=== PATIENT | male | born 1935 | race Caucasian/White ===

== ENCOUNTER 2024-09-06 15:30 | Emergency (ER) | payer MEDICARE, SELFPAY ==
[2024-09-06] VITALS (7 sets, daily range): BP systolic 100–164; BP diastolic 62–100; PULSE 71–89; RESP 18–22; TEMP 36.6; O2SAT 96–100
--- NOTE | ~2024-09-06 | XR_ITS ---
EXAM: XR wrist RT min 3V DATE: 09/06/2024 15:55 HISTORY: fall . COMPARISON: None available. FINDINGS: Decreased mineralization. No fracture. Scapholunate widening. No lytic or blastic lesion. Scattered degenerative change, with findings that can be seen with scapholunate advanced collapse. Ch ondrocalcinosis. No erosion or periosteal change. Soft tissues swelling over the wrist. IMPRESSION: Acute versus chronic scapholunate widening. No definite fracture. Reviewed, dictated and finalized at location K.
--- NOTE | ~2024-09-06 | CT_ITS ---
EXAMINATION: CT facial & cervical spine wo DATE: 09/06/2024 17:25 INDICATION: trauma TECHNIQUE: Computed tomography (CT) of the maxillofacial region and cervical spine was performed with out intravenous contrast. Automated exposure control and iterative reconstruction technique were empl oyed. The dose-length product was 433.30 mGy-cm. COMPARISON: X-ray C-spine 10/10/2014 FINDINGS: CERVICAL: Vertebral Body Alignment: Reversal of the normal cervical lordosis centered at C5. Trace multilevel l istheses, presumably on a degenerative basis. Craniocervical and atlantoaxial alignment: Moderate degenerative change. Alignment intact. Osseous structures/fracture: No evidence of a lytic or blastic process in the visualized spine. No e vidence of acute fracture. Cervical soft tissues: The paraspinal soft tissues planes are maintained. Degenerative changes: Degenerative changes, without severe neural foraminal or central canal narrowin g. FACE: Soft Tissues: Small right frontal soft tissue contusion. Facial bones: No acute fracture. No lytic or blastic process. Eyes: The globes are intact. Bilateral lens replacements. The soft tissue planes of the orbits are m aintained. Paranasal Sinuses: Minimal aerated secretions in the left sphenoid sinus. The visualized aerated spa angel are otherwise clear. Foreign Bodies: No radiopaque foreign bodies. Other Findings: Dental caries and periodontal disease. IMPRESSION: No acute fracture or traumatic malalignment in the cervical spine. No acute facial bone fracture. Reviewed, dictated and finalized at location K. IMPRESSION: No acute fracture or traumatic malalignment in the cervical spine. No acute fac ial bone fracture.
--- NOTE | ~2024-09-06 | XR_ITS ---
EXAMINATION: XR chest 1V portable Exam Date/Time: 09/06/2024 16:50 CDT HISTORY: syncope Comparison: None. RESULT: Lines, tubes, and devices: Left chest pacer with intact leads. Lungs and pleura: Left hemidiaphragm elevation. Streaky bibasilar atelectasis/scar. Ill-defined patc hy subsegmental opacity in the right lung base. Cardiomediastinal silhouette: Stable. Other: No acute osseous or upper abdominal finding. IMPRESSION: Subsegmental bibasilar atelectasis/consolidation. Chronic left hemidiaphragm elevation Reviewed, dictated and finalized at location K. IMPRESSION: Subsegmental bibasilar atelectasis/consolidation. Chronic left hemidiaphragm el evation
--- NOTE | ~2024-09-06 | CT_ITS ---
EXAMINATION: CT brain wo con DATE: 09/06/2024 17:25 INDICATION: trauma . TECHNIQUE: Computed tomography (CT) of the head was performed without intravenous contrast. The mA wa s adjusted according to patient size. Iterative reconstruction technique was employed. The dose-lengt h product was 605.33 mGy-cm. COMPARISON: 01/13/2015. FINDINGS: No acute intracranial hemorrhage or extra-axial fluid collection. No hydrocephalus, mass, or herniation. No acute large vessel infarct. Focal area of mello/white matter hypodensity in the left occipital lobe , may represent acute or early chronic infarct. Unremarkable dural venous sinus attenuation. No acute osseous abnormality. Mild right frontal soft tissue contusion. Minimal aerated secretions in the left sphenoid sinus which may represent sinusitis or small volume m ucosal hemorrhage in the setting of trauma, the remaining aerated spaces are clear. Moderate atrophy and chronic white matter change. Atherosclerotic intracranial calcification. Bilater al lens replacements. Focal area of encephalomalacia in the left inferolateral frontal lobe. IMPRESSION: Focal left occipital lobe hypodensity may represent a small infarct of indeterminate age. No intracranial hemorrhage or acute traumatic intracranial finding. Reviewed, dictated and finalized at location K. IMPRESSION: Focal left occipital lobe hypodensity may represent a small infarct of indeterm inate age. No intracranial hemorrhage or acute traumatic intracranial finding.
--- OUTSIDE RECORDS SUMMARY | 2024-09-06 15:42 | XMS_ITS | Encounter Summary ---
Author Organization [facility] Address Replaced by [facility] [place] [address] Care Team Providers Care Med Admin Name Role Phone Triston Jha MD Primary Care Provider [phone] Uri Butt MD Unavailable [phone] Encounter Details Date Type Department Care Team (Late st Contact Info) Description 08/12/2016 Abstract [facility] AT [address] [address] Bob Farmer MA Social History Tobacco Use Types Packs/Day Years Used Date Smoking Tobacco: Former Smokeless Tobacco: Never Alcohol Use Standard Drinks/Week Comments No 0 (1 standard drink = 0.6 oz pur e alcohol) Sex and Gender Information Value Date Recorded Sex Assigned at Not on file Legal Sex Male 9:36 PM CDT Gender Identity Not on file Sexual Orientation Not on file Occupation Industry Job Start Date Job End Date Not on file Not on file Not on file Not on file documented as of this encounter Plan of Treatment Upcoming Encounters Date Type Department Care Team (Late st Contact Info) Description 09/14/2024 12:15 PM CDT Office Visit [place] [facility] THREE [facility], [address] [place], [place] [address] Rain Carrizales NP-C Three [facility]. [facility] [address] [place], [place] [address] 10/22/2024 9:35 AM CDT Allied Health/Nurse Visit [place] [facility] THREE [facility], [address] [place] [address] Uri Butt MD Three [facility] [address] [place] [address] documented as of this encounter Procedures Procedure Name Priority Date/Time Associated Diagnosis Comments LIPID PANEL Routine 08/12/2016 CK (CPK) Routine 08/12/2016 ALT/SGPT Routine 08/12/2016 documented in this encounter Results * CK (CPK) (08/12/2016) CPK 393 08/12/2016 us Doc [facility] Abstract LABORATORY Final Result * ALT/SGPT (08/12/2016) ALT 40 08/12/2016 us Doc [facility] Abstract LABORATORY Final Result * LIPID PANEL (08/12/2016) CHOLESTEROL 130 HDL 51 TRIGLYCERIDES 92 LDL (CALCULATED) 56 08/12/2016 us Doc [facility] Abstract LABORATORY Final Result documented in this encounter Visit Diagnoses Not on filedocumented in this encounter Care Teams Med Admin Relationship Specialty Start Date End Date Triston Jha MD [address] [facility] [address] [place] [address] PCP - General FAMILY PRACTICE 01/27/16 Uri Butt MD [address] [place] [address] Caryn Creative Lead CARDIOVASCULAR DISEASE 01/27/16 documented as of this encounter
--- OUTSIDE RECORDS SUMMARY | 2024-09-06 15:42 | XMS_ITS | Encounter Summary ---
Author Organization [facility] Address [facility] [place] [address] Care Team Providers Care Hotel Night Auditor Name Role Phone Triston Jha MD Primary Care Provider [phone] Uri Butt MD Unavailable [phone] Encounter Details Date Type Department Care Team (Late st Contact Info) Description 04/03/2020 Hospital Follow-up Call [facility] [place] [address] Roberta Moreno, RN Social History Tobacco Use Types Packs/Day Years Used Date Smoking Tobacco: Former Cigarettes Smokeless Tobacco: Never Alcohol Use Standard Drinks/Week [...] file Not on file Not on file COVID-19 Exposure Response Date Recorded In the last month, have you been in contact with someone who was confirmed or suspected to have Coronavirus / COVID-19? No / Unsure 03/30/2020 2:24 PM CDT documented as of this encounter Functional Status * RETIRED Are you deaf or do you have serious difficulty hearing Answer Date of Assessment Author Status No 03/30/2020 1:49 AM CDT Activ e * RETIRED Are you blind or do you have serious difficulty seeing, even when wearing glasses? Answer Date of Assessment Author Status No 03/30/2020 1:49 AM CDT Activ e * Do you have serious difficulty walking or climbing stairs? Answer Date of Assessment Author Status Yes 03/30/2020 1:49 AM CDT Cici Sotelo RN Active * Do you have difficulty dressing or bathing? Answer Date of Assessment Author Status No 03/30/2020 1:49 AM CDT Cici Sotelo RN Active * Because of a physical, mental, or emotional condition, do you have difficulty doing errands alone such as visiting a doctor's office or shopping? Answer Date of Assessment Author Status No 03/30/2020 1:49 AM CDT Cici Sotelo RN Active documented as of this encounter Mental Status * Because of a physical, mental, or emotional condition, do you have serious difficulty concentrating, remembering, or making decisions? Answer Entry Date Author Status No 03/30/2020 1:49 AM CDT Cici Sotelo RN Active documented in this encounter Plan of Treatment Upcoming Encounters Date Type Department Care Team (Late st Contact Info) Description 09/14/2024 12:15 PM CDT Office Visit [place] [facility], [address] [address] Rain Carrizales, PHOTOGRAPHY COLORIST-C [facility]. [facility] [address] [place], [place] [address] 10/22/2024 9:35 AM CDT Allied Health/Nurse Visit [facility], [address] [address] Uri Butt MD [facility]. [address] [address] documented as of this encounter Visit Diagnoses Not on filedocumented in this encounter Care Teams Hotel Night Auditor Relationship Specialty Start Date End Date Triston Jha MD [address] [address] PCP - General FAMILY PRACTICE 01/27/16 Uri Butt MD [facility] [address] [place] [address] [place] Braider Operator CARDIOVASCULAR DISEASE 01/27/16 documented as of this encounter
--- OUTSIDE RECORDS SUMMARY | 2024-09-06 15:42 | XMS_ITS | CONTINUITY OF CARE DOCUMENT ---
Author Name jarred stern Address Unknown Organization [facility] Address [address] [place] [address] Phone [phone] Care Team Providers Care Sow Farm Manager Name Role Phone jarred stern Unavailable Unavailable
--- OUTSIDE RECORDS SUMMARY | 2024-09-06 15:42 | XMS_ITS | Encounter Summary ---
Author Organization [facility] Address [facility], [facility] [place] [address] Care Team Providers Care Cnc Mill Set Up Operator Name Role Phone Triston Jha MD Primary Care Provider [phone] Uri Butt MD Unavailable [phone] Encounter Details Date Type Department Care Team (Late st Contact Info) Description 03/31/2020 Hospital Orders Only [employer] Java Developer Analyst [facility] [place] [address] Cr Calloway MD [address] [place], [place] [id number] Social History Tobacco Use Types Packs/Day Years [...] Description 09/14/2024 12:15 PM CDT Office Visit [place] [facility], [address] [address] Rain Carrizales, FIELD REIMBURSEMENT MANAGER-C [facility]. [facility] [address] [place], [place] [address] 10/22/2024 9:35 AM CDT Allied Health/Nurse Visit [place] [facility], [address] [address] Uri Butt MD [facility]. [address] [address] documented as of this encounter Visit Diagnoses Not on filedocumented in this encounter Care Teams Cnc Mill Set Up Operator Relationship Specialty Start Date End Date Triston Jha MD [address] [address] PCP - General FAMILY PRACTICE 01/27/16 Uri Butt MD Three [facility]. [address] [address] [place] Underwater Hunter CARDIOVASCULAR DISEASE 01/27/16 documented as of this encounter
--- OUTSIDE RECORDS SUMMARY | 2024-09-06 15:42 | XMS_ITS | Encounter Summary ---
Author Organization [facility] Address [facility] [place] [address] Care Team Providers Care Corporate Strategy Intern Name Role Phone Triston Jha MD Primary Care Provider [phone] Uri Butt MD Unavailable [phone] Encounter Details Date Type Department Care Team (Late Contact Info) Description 09/14/2017 Abstract [facility] [address] [place] [address] Bob Farmer MA Social History Tobacco Use [...] Encounters Date Type Department Care Team (Late Contact Info) Description 09/14/2024 12:15 PM CDT Office Visit [place] [facility], [address] [place], [place] [id number] Rain Carrizales NP-C [facility]. [facility] [address] [place], [place] [address] 10/22/2024 9:35 AM CDT Allied Health/Nurse Visit [place] [facility], [address] [address] Uri Butt MD Three [facility]. [address] [address] documented as of this encounter Procedures Procedure Name Priority Date/Time Associated Diagnosis Comments COMPREHENSIVE METABOLIC PANEL Routine 12/14/2022 CBC, MANUAL DIFF Routine 12/14/2022 HEMOGLOBIN, GLYCOSYLATED Routine 06/02/2022 COMPREHENSIVE METABOLIC PANEL Routine 06/02/2022 LIPID PANEL Routine 12/24/2021 COMPREHENSIVE METABOLIC PANEL Routine 03/11/2017 LIPID PANEL Routine 03/11/2017 HEMOGLOBIN, GLYCOSYLATED Routine 03/11/2017 documented in this encounter Results * (ABNORMAL) COMPREHENSIVE METABOLIC PANEL (12/14/2022) SODIUM S/P/B 139 GLUCOSE 108 mg/dL AST 28.9 BUN 32 CREATININE S/P/B 1.37(A) 0.7 - 1.3 CALCIUM S/P/B 9.3 POTASSIUM S/P/B 5.0 CHLORIDE S/P/B 104 ALT 34.1 GFR ESTIMATE 50 us Default History Genericprovider LABORATORY Final Result * CBC, MANUAL DIFF (12/14/2022) WBC 8.1 HGB 13.2 HCT 42.5 PLT 225 us Default History Genericprovider LABORATORY Final Result * (ABNORMAL) COMPREHENSIVE METABOLIC PANEL (06/02/2022) SODIUM S/P/B 138 GLUCOSE 116 mg/dL AST 25 BUN 35 CREATININE S/P/B 1.36(A) 0.7 - 1.3 CALCIUM S/P/B 9.6 POTASSIUM S/P/B 4.4 CHLORIDE S/P/B 103 ALT 24.7 GFR ESTIMATE 51 us Default History Genericprovider LABORATORY Final Result * HEMOGLOBIN, GLYCOSYLATED (06/02/2022) HGB A1C 6.3 % us Default History Genericprovider LABORATORY Final Result * LIPID PANEL (12/24/2021) Pathologist [facility] CHOLESTEROL 130.8 TRIGLYCERIDES 70 HDL 51 LDL (CALCULATED) 62 us Default History Genericprovider LABORATORY Final Result * COMPREHENSIVE METABOLIC PANEL (03/11/2017) Pathologist [facility] SODIUM S/P/B 139 POTASSIUM S/P/B 5.0 CO2 25.9 CHLORIDE S/P/B 100 GLUCOSE 87 mg/dL CALCIUM S/P/B 9.5 BUN 19 CREATININE S/P/B 1.30 0.7 - 1.3 EGFR AFR. AMER. 68 EGFR NON-AFR. AMER. 56 <=90 ALKALINE PHOSPHATASE S/P/B 102 ALT 21 AST 21 BILIRUBIN TOTAL S/P/B 0.5 ALBUMIN S/P/B 4.5 3.5 - 5.0 TOTAL PROTEIN S/P/B 7.7 03/11/2017 us Doc [facility] Abstract LABORATORY Final Result * LIPID PANEL (03/11/2017) CHOLESTEROL 127 HDL 45 TRIGLYCERIDES 134 DIRECT LDL 67 03/11/2017 us Doc [facility] Abstract LABORATORY Final Result * HEMOGLOBIN, GLYCOSYLATED (03/11/2017) Pathologist [facility] HGB A1C 6.2 03/11/2017 us Doc [facility] Abstract LABORATORY Final Result documented in this encounter Visit Diagnoses Not on filedocumented in this encounter Care Teams Corporate Strategy Intern Relationship Specialty Start Date End Date Triston Jha MD [address] [facility] [address] [place] [address] PCP - General FAMILY PRACTICE 01/27/16 Uri Butt MD [facility]. [address] [address] [place] Pot Builder CARDIOVASCULAR DISEASE 01/27/16 documented as of this encounter
--- OUTSIDE RECORDS SUMMARY | 2024-09-06 15:42 | XMS_ITS | Clinical Summary ---
Author Organization [facility] Address [address] [place] [address] Care Team Providers Care Second Baker Name Role Phone Triston Jha MD Primary Care Provider [phone] Uri Butt MD Unavailable [phone] Allergies No known active allergies Medications allopurinol 100 MG tablet Take 1 tablet (100 mg total) by mouth 2 (two) times daily. 7 Active aspirin EC (ASPIRIN EC) 81 MG tablet Take 1 tablet (81 mg total) by mouth daily. Active zolpidem 5 MG tablet Take 1 tablet (5 mg total) by mouth nightly as needed for Sleep. 1 Active ATORVASTATIN 40 MG tablet TAKE 1 TABLET BY MOUTH EVERY NIGHT AT BEDTIME 90 tablet 3 2 Active Additional Information Patient taking differently: 40 mg Oral Nightly at bedtime, Reported on 08/23/2023 hydrOXYzine (ATARAX) 25 MG tablet Take 1 tablet (25 mg total) by mouth every 6 (six) hours as needed. 3 Active escitalopram (LEXAPRO) 10 MG tablet Take 1 tablet (10 mg total) by mouth daily. 3 Active losartan (COZAAR) 25 MG tablet Take 1 tablet (25 mg total) by mouth daily for 30 days. 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 Bradycardia 06/16/2021 Chest pain 03/29/2020 White coat syndrome with hypertension 07/22/2016 Hyperlipidemia 01/30/2016 Carotid stenosis 01/30/2016 Benign essential HTN 01/30/2016 Essential hypertension Dyslipidemia Carotid artery stenosis CAD (coronary artery disease) Encounters Date Type Department Care Team Description 07/02/2024 9:30 AM POUND KEEPER Allied Health/Nurse Visit [facility] THREE [facility], [address] [address] Uri Butt MD Remote Device Check from Last 3 Months Immunizations Name Administration Dates Next Due PFIZER COVID-19 (ORIGINAL FO RMULATION, PURPLE CAP) mRNA, LNP-S, PF, 30 MCG/0.3 ML DOSE 11/14/2020,10/23/2020 Family History Medical History Relation Comments No premature coronary artery disease Other Relation Status Comments Other Social History Tobacco Use Types Packs/Day Years Used Date Smoking Tobacco: Former Cigarettes Smokeless Tobacco: Never Tobacco Cessation:Counseling Given: Not Answered Alcohol Use Standard Drinks/Week Comments No 0 (1 standard drink = 0.6 oz pur e alcohol) [facility] Utilities Answer Date Recorded In the past [address] [facility] Scheduling Employee Scheduling Software, gas, oil, or water [employer] threatened to shut off services in your home? No 08/23/2023 Humiliation, Afraid, Rape, and Kick questionnair e Answer Date Recorded Within the last year, have y ou been afraid of your partner or ex-partner? No 08/23/2023 Within the last year, have y ou been humiliated or emotionally abused in other ways by your partner or ex-partner? No Within the last year, have y ou been kicked, hit, slapped, or otherwise physically hurt by your partner or ex-partner? No 08/23/2023 Within the last year, have y ou been raped or forced to have any kind of sexual activity by your partner or ex-partner? No 08/23/2023 Overall Financial Resource Strain (CARDIA) Answe r Date Recorded How hard is it for you to pa y for the very basics like food, housing, medical care, and heating? Somewhat hard 08/23/2023 Hunger Vital Sign Answer Date Recorded Within the past 12 months, y ou worried that your food would run out before you got the money to buy more. Never true 08/23/19 24 Within the past 12 months, t he food you bought just didn't last and you didn't have money to get more. Never true 08/23/2023 PRAPARE - Transportation Answer Date Re corded In the past 12 months, has l ack of transportation kept you from medical appointments or from getting medications? Yes 08/04 In the past 12 months, has l ack of transportation kept you from meetings, work, or from getting things needed for daily living? Yes 08/23/2023 Housing Stability Vital Sign Answer Toan e Recorded In the last 12 months, was t here a time when you were not able to pay the mortgage or rent on time? Yes 08/23/2023 In the last 12 months, how many places have you lived? 2 08/23/2023 In the last 12 months, was t here a time when you did not have a steady place to sleep or slept in a mcc (including now)? No 08/23/2023 Sex and Gender Information Value Date Recorded Sex Assigned at Not on file Legal Sex Male 9:36 PM CDT Gender Identity Not on file Sexual Orientation Not on file Occupation Industry Job Start Date Job End Date Not on file Not on file Not on file Not on file Last Filed Vital Signs Vital Sign Reading Time Taken Comments Blood Pressure 160/102 01/20/2024 11:08 AM CDT Pulse 74 01/20/2024 11:08 AM CDT Temperature 36.8 C (98.2 F) 08/25/2023 12:06 PM CDT Respiratory Rate 20 08/25/2023 12:0 6 PM CDT Oxygen Saturation 98% 01/20/2024 11: 08 AM CDT Inhaled Oxygen Concentration - - Weight 82.9 kg (182 lb 12.8 oz) 024 11:08 AM CDT Height 180.3 cm (5' 11 ) 01/20/2024 11: 08 AM CDT Body Mass Index 25.5 01/20/2024 11:08 AM CDT Plan of Treatment Upcoming Encounters Date Type Department Care Team (Late st Contact Info) Description 09/14/2024 12:15 PM CDT Office Visit [place] [facility] THREE [facility], [address] [place] [address] Rain Carrizales NP-C Three [facility]. [address] [place] [address] 10/22/2024 9:35 AM CDT Allied Health/Nurse Visit [place] [facility] THREE [facility], [address] [place], [place] [address] Uri Butt MD Three [facility]. [facility] [address] [place], [place] [address] Health Maintenance Due Date Last Done Comments ASCVD Statin 1935 Zoster Vaccines (1 of 2) 12/17/1985 Annual Medicare Wellness Visit 12/17/2000 RSV Immunization or 60+ Years (1 - 1-dose 75+ series) 12/17/2010 ASCVD LDL 12/24/2022 12/24/2021, 12/0 09/2020, 04/21/2021, Additional history exists COVID-19 Vaccine ( season) 2024 11/14/2020, 10/23/2020 DTaP, Tdap and Td Vaccines (2 - Td or Tdap) 03/01/2024 03/01/2014 Pneumococcal Vaccine: 65+ Years Completed 03/11/2017, 07/28/2015, 04/12/2012 Meningococcal B Vaccine Aged Out No l onger eligible based on patient's age to complete this topic Meningococcal Vaccine Aged Out No kam christopher eligible based on patient's age to complete this topic RSV Immunizations Under 20 Months Aged Out No longer eligible based on patient's age to complete this topic Goals Goal Patient Goal Type Associated Problems Recent Progress Patient-Stated? Author Health - patient able to perform ADLs independently Lifestyle Adama Langford RN Medical Devices Implanted Type Area Dean Of Education Device Identifier Shelf Expiration Date Model / Serial / Lot Ra Lead-06/19/19 Implanted:Qt y: 1 on 06/19/2021 by Dhaval Rizzo MD Lead Implant [facility] [facility] [facility] [facility] 2087 TC / [id number] / Rv Lead-06/19/19 Implanted:Qt y: 1 on 06/19/2021 by Dhaval Rizzo MD Lead Implant Ventricle [facility] 2272 / [id number] / Stj Dc Pacemaker- Implanted:Qt y: 1 on 06/19/2021 by Dhaval Rizzo MD Pacemaker Left: Chest [facility] [facility] 227 / [id number] / Procedures Procedure Name Priority Date/Time Associated Diagnosis Comments LIPID PANEL Routine 12/24/2021 from Last 3 Months or Most Recently Relevant to Health Maintenance Results * LIPID PANEL (12/24/2021) CHOLESTEROL 130.8 TRIGLYCERIDES 70 HDL 51 LDL (CALCULATED) 62 us Default History Genericprovider LABORATORY Final Result from Last 3 Months or Most Recently Relevant to Health Maintenance Insurance [address] [id number] Advance Directives Documents on File Type Date Recorded Patient Computer Information Systems Professor Expl anation Advance Directives and Living Will 09/10/2023 10:57 AM 08/25/23 POA FOR HEALTHCARE * DNR (Latest Code Status on File) Date Activated Date Inactivated Comments 08/23/2023 3:56 PM 08/25/2023 7:24 PM * Full Code Date Activated Date Inactivated Comments 08/20/2021 5:03 AM 08/24/2021 1:48 PM * Full Code Date Activated Date Inactivated Comments 06/19/2021 10:17 AM 06/19/2021 2:51 PM * Full Code Date Activated Date Inactivated Comments 05/07/2021 5:34 PM 05/09/2021 1:27 PM * Full Code Date Activated Date Inactivated Comments 04/01/2020 3:23 PM 04/02/2020 2:43 PM Care Teams Second Baker Relationship Specialty Start Date End Date Triston Jha MD [address] [address] PCP - General FAMILY PRACTICE 01/27/16 Uri Butt MD [address] [address] [place] Copier Field Service Technician CARDIOVASCULAR DISEASE 01/27/16
--- NOTE | 2024-09-06 16:36 | ECG_ITS ---
Test Date: 2024-09-06 16:43:16 Measurements Intervals [place] Rate: 77 P: 50 [place]: 189 QRS: -51 QRSD: 160 T: 44 QT: 439 QTc: 500 Interpretive Statements SINUS RHYTHM RIGHT BUNDLE BRANCH BLOCK LEFT ANTERIOR FASCICULAR BLOCK BASELINE ARTIFACT- I, II, III, AVR, AVL, AVF ABNORMAL ECG No previous ECG available for comparison Electronically Signed On 09-06-2024 16:52:33 CDT by Wai Cardenas D.O.
[2024-09-06 16:57] LABS: Basophils Percent Auto 0.4 % (0.2-1.2); Eosinophils Percent Auto 0.1 % (0-4.4); Hematocrit 40.6 % (42.0-52.0); Hemoglobin 12.8 g/dL (14.0-18.0); Immature Granulocyte Absolute 0.08 K/mm3 (0.00-0.031); Immature Granulocyte Percent A 0.7 % (0-0.5); Lymphocytes Absolute Auto 0.98 K/mm3 (0.9-3.2); Lymphocytes Percent Auto 8.7 % (18.3-44.2); Mean Corpuscular HGB Conc 31.5 g/dl (32-36); Mean Corpuscular Hemoglobin 26.6 pg (26-34); Mean Corpuscular Volume 84.4 fl (80-100); Mean Platelet Volume 9.8 fl (7.4-10.4); Monocytes Absolute Auto 0.9 K/mm3 (0.1-0.6); Monocytes Percent Auto 7.7 % (2.6-8.5); Neutrophils Absolute Auto 9.3 K/mm3 (1.3-6.7); Neutrophils Percent Auto 82.4 % (45.5-73.1); Platelet Count Result 198 k/mm3 (150-375); Red Blood Count 4.81 M/mm3 (4.6-6.20); Red Cell Distribution Width 14.6 % (11.5-14.5); White Blood Count 11.3 K/mm3 (4.5-10.0)
[2024-09-06 17:07] LABS: Alanine Aminotransferase 29 U/L (6-50); Albumin Level 4.4 g/dL (3.5-5.1); Alkaline Phosphatase 171 U/L (38-126); Anion Gap 13 mmol/L (4-12); Aspartate Amino Transferase 35 U/L (17-59); Bilirubin,Total 1.2 mg/dL (0.2-1.3); Blood Urea Nitrogen 27 mg/dL (9-20); Calcium 8.9 mg/dL (8.4-10.2); Carbon Dioxide 21 mmol/L (22-30); Chloride 104 mmol/L (98-107); Estimated CRCL calculation 34 ml/min; Estimated Glomerular Filt Rate 47; Glucose 151 mg/dL (65-110); Potassium 3.7 mmol/L (3.4-5.0); Sodium 138 mmol/L (137-145)
--- OUTSIDE RECORDS SUMMARY | 2024-09-06 17:10 | XMS_ITS | Encounter Summary ---
Author Organization [facility] Address [facility] [place] [address] Care Team Providers Care Painter Bottom Name Role Phone Triston Jha MD Primary Care Provider [phone] Uri Butt MD Unavailable [phone] Encounter Details Date Type Department Care Team (Late st Contact Info) Description 04/03/2020 Hospital Follow-up Call [facility] [place] [address] Roberta Moreno, RN Social History Tobacco Use [...] Description 09/14/2024 12:15 PM CDT Office Visit [place] [facility], [address] [address] Rain Carrizales, NIGHT GUARD-C [facility]. [facility] [address] [place], [place] [address] 10/22/2024 9:35 AM CDT Allied Health/Nurse Visit [facility], [address] [address] Uri Butt MD [facility]. [address] [address] documented as of this encounter Visit Diagnoses Not on filedocumented in this encounter Care Teams Painter Bottom Relationship Specialty Start Date End Date Triston Jha MD [address] [address] PCP - General FAMILY PRACTICE 01/27/16 Uri Butt MD [facility] [address] [place] [address] [place] Supervisor Esters And Emulsifiers CARDIOVASCULAR DISEASE 01/27/16 documented as of this encounter
--- OUTSIDE RECORDS SUMMARY | 2024-09-06 17:10 | XMS_ITS | CONTINUITY OF CARE DOCUMENT ---
Author Name jarred stern Address Unknown Organization [facility] Address [address] [place] [address] Phone [phone] Care Team Providers Care Photo Print Specialist Name Role Phone jarred stern Unavailable Unavailable
--- OUTSIDE RECORDS SUMMARY | 2024-09-06 17:10 | XMS_ITS | Encounter Summary ---
Author Organization [facility] Address [facility] [place] [address] Care Team Providers Care Display Specialist Name Role Phone Triston Jha MD Primary Care Provider [phone] Uri Butt MD Unavailable [phone] Encounter Details Date Type Department Care Team (Late st Contact Info) Description 03/31/2020 Hospital Orders Only [facility] [employer] [facility] [place] [address] Cr Calloway MD [address] [place], [place] [id number] Social History Tobacco Use Types Packs/Day Years [...] Description 09/14/2024 12:15 PM CDT Office Visit [facility], [address] [address] Rain Carrizales, VOCATIONAL EVALUATOR-C [facility]. [facility] [address] [place], [place] [address] 10/22/2024 9:35 AM CDT Allied Health/Nurse Visit [facility], [address] [address] Uri Butt MD [facility]. [address] [id number] documented as of this encounter Visit Diagnoses Not on filedocumented in this encounter Care Teams Display Specialist Relationship Specialty Start Date End Date Triston Jha MD [address] [address] PCP - General FAMILY PRACTICE 01/27/16 Uri Butt MD Three [facility]. [address] [address] [employer] Tender CARDIOVASCULAR DISEASE 01/27/16 documented as of this encounter
--- OUTSIDE RECORDS SUMMARY | 2024-09-06 17:10 | XMS_ITS | Clinical Summary ---
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 Bradycardia 06/16/2021 Chest pain 03/29/2020 White coat syndrome with hypertension 07/22/2016 Hyperlipidemia 01/30/2016 Carotid stenosis 01/30/2016 Benign essential HTN 01/30/2016 Essential hypertension Dyslipidemia Carotid artery stenosis CAD (coronary artery disease) Encounters Date Type Department Care Team Description 07/02/2024 9:30 AM SHOE STITCHER Allied Health/Nurse [facility], [address] [address] Uri Butt MD Remote Device Check from [...] drink = 0.6 oz pur e alcohol) [facility] Utilities Answer Date Recorded In the past 12 months has [facility] [employer], gas, oil, or water VCE threatened to shut off services in your [...] place to sleep or slept in a fci (including now)? No 08/23/2023 Sex and Gender [...] Description 09/14/2024 12:15 PM CDT Office Visit [facility], [address] [place] [address] Rain Carrizales NP-C Three [facility]. [address] [place] [address] 10/22/2024 9:35 AM CDT Allied Health/Nurse Visit [facility], [address] [place], [place] [address] Uri Butt MD Three [facility]. [facility] [address] [place], [place] [address] Health Maintenance Due Date Last Done Comments [...] Langford RN Medical Devices Implanted Type Area Paper Sorter Device Identifier Shelf Expiration Date Model / Serial / Lot Ra Lead-06/19/19 Implanted:Qt y: 1 on 06/19/2021 by Dhaval Rizzo MD Lead Implant [facility] 2087 TC / [id number] / Rv Lead-06/19/19 Implanted:Qt y: 1 on 06/19/2021 by Dhaval Rizzo MD Lead Implant Ventricle [facility] 2272 / [id number] / Stj Dc Pacemaker- Implanted:Qt y: 1 on 06/19/2021 by Dhaval Rizzo MD Pacemaker Left: Chest [facility] 227 / [id number] / Procedures Procedure Name Priority Date/Time Associated Diagnosis Comments LIPID PANEL Routine 12/24/2021 from Last 3 Months or Most Recently Relevant to Health Maintenance Results * LIPID PANEL (12/24/2021) CHOLESTEROL 130.8 TRIGLYCERIDES 70 HDL 51 LDL (CALCULATED) 62 us Default History Genericprovider LABORATORY Final Result from Last 3 Months or Most Recently Relevant to Health Maintenance Insurance [address] [id number] Advance Directives Documents on File Type Date Recorded Patient Rivet Passer Expl anation Advance Directives and Living Will [...] 3:23 PM 04/02/2020 2:43 PM Care Teams Senior Technical Editor Relationship Specialty Start Date End Date Triston Jha MD [address] [address] PCP - General FAMILY PRACTICE 01/27/16 Uri Butt MD [address] [address] [employer] Clerk CARDIOVASCULAR DISEASE 01/27/16
--- OUTSIDE RECORDS SUMMARY | 2024-09-06 17:10 | XMS_ITS | Encounter Summary ---
Author Organization [facility] Address [facility] [place] [address] Care Team Providers Care Inspector Packager Name Role Phone Triston Jha MD Primary Care Provider [phone] Uri Butt MD Unavailable [phone] Encounter Details Date Type Department Care Team (Late st Contact Info) Description 08/12/2016 Abstract [facility] AT [address] [address] Bob Farmer MA Social History [...] Description 09/14/2024 12:15 PM CDT Office Visit [facility] THREE [facility], [address] [place], [place] [address] Rain Carrizales NP-C Three [facility]. [facility] [address] [place], [place] [address] 10/22/2024 9:35 AM CDT Allied Health/Nurse Visit [facility] THREE [facility], [address] [place] [address] Uri Butt MD Three [facility] [address] [place] [address] documented as of this encounter Procedures Procedure [...] on filedocumented in this encounter Care Teams Inspector Packager Relationship Specialty Start Date End Date Triston Jha MD [address] [facility] [address] [place] [address] PCP - General FAMILY PRACTICE 01/27/16 Uri Butt MD [address] [place] [address] Caryn Insurance Risk Analyst CARDIOVASCULAR DISEASE 01/27/16 documented as of this encounter
--- OUTSIDE RECORDS SUMMARY | 2024-09-06 17:10 | XMS_ITS | Encounter Summary ---
Author Organization [facility] Address [facility] [place] [address] Care Team Providers Care Activity Therapy Specialist Name Role Phone Triston Jha MD Primary Care Provider [phone] Uri Butt MD Unavailable [phone] Encounter Details Date Type Department Care Team (Late Contact Info) Description 09/14/2017 Abstract [facility] [address] [place] [address] Bob Farmer MA Social History [...] Description 09/14/2024 12:15 PM CDT Office Visit [facility], [address] [place], [place] [id number] Rain Carrizales NP-C [facility]. [facility] [address] [place], [place] [id number] 10/22/2024 9:35 AM CDT Allied Health/Nurse Visit [facility], [address] [address] Uri Butt MD Three [facility]. [address] [address] documented as of this encounter Procedures Procedure [...] Final Result * LIPID PANEL (12/24/2021) Pathologist [facility] CHOLESTEROL 130.8 TRIGLYCERIDES 70 HDL 51 LDL (CALCULATED) 62 us Default History Genericprovider LABORATORY Final Result * COMPREHENSIVE METABOLIC PANEL (03/11/2017) Pathologist [facility] SODIUM S/P/B 139 POTASSIUM S/P/B 5.0 CO2 [...] Final Result * HEMOGLOBIN, GLYCOSYLATED (03/11/2017) Pathologist [facility] HGB A1C 6.2 03/11/2017 us Doc [facility] Abstract LABORATORY Final Result documented in this encounter Visit Diagnoses Not on filedocumented in this encounter Care Teams Activity Therapy Specialist Relationship Specialty Start Date End Date Triston Jha MD [address] [facility] [address] [place] [address] PCP - General FAMILY PRACTICE 01/27/16 Uri Butt MD [facility]. [address] [address] [place] [employer] CARDIOVASCULAR DISEASE 01/27/16 documented as of this encounter
[2024-09-06 17:18] LABS: Troponin I 0.012 ng/mL (0.000-0.034)
--- NOTE | 2024-09-06 20:15 | ED.GENADULT ---
HPI - General Adult General Chief complaint: Extremity Injury, Upper Stated complaint: Injury to right wrist-fell 2 days ago Time Seen by Provider: 09/06/24 16:46 History of Present Illness HPI narrative: Patient is an 88-year-old male who presents ER after a fall 2 days ago. Struck his face but denies losing consciousness. Developed pain to the right wrist after the fall as well. Has swelling and tenderness. Patient is a poor historian is oriented 2-3 but keeps getting the year wrong. Family unsure if he has dementia or not. He is not on a blood thinner. He is supposed to walk with a walker but has frequent falls because he has does not use it. Related Data Allergies Allergy/AdvReac Type Severity Reaction Status Date / Time No Known Allergies Allergy Verified 09/06/24 15:33 Review of Systems Review of Systems: ROS unobtainable: Yes unobtainable due to mental status PMFSH Past Medical History Medical History (Updated 09/06/24 @ 20:31 by Phong Vences MD) Gout Myocardial infarction Hypertension Surgical History Surgical History (Updated 09/06/24 @ 20:31 by Phong Vences MD) History of cholecystectomy Hx of appendectomy Social History Social History Smoking status: Never smoker Alcohol intake: current Exam Narrative: GENERAL: Well-appearing, well-nourished, and in no acute distress. HEAD: Normocephalic, abrasion right forehead with surrounding bruising EYES: PERRL and EOMI. ENT: Mucous membranes moist. Black eye on the right side. NECK: Supple. CHEST: Clear to auscultation. No respiratory distress. HEART: Regular rate and rhythm. Normal peripheral pulses. EXTREMITIES: Normal range of motion. No edema. Tender palpation anatomic snuffbox on the right side with redness and swelling. SKIN: Warm, dry, no rash. NEURO: Alert and oriented x2-3. 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 Family reports no new changes to mental status or function that they have chronically been poor over last year. Recommend follow-up with PCP. Also recommend Ortho follow-up regarding wrist injury. Vital Signs Vital signs: Vital Signs Temperature 97.9 F 09/06/24 15:37 Pulse Rate 89 09/06/24 15:37 Respiratory Rate 18 09/06/24 15:37 Blood Pressure 100/62 09/06/24 15:37 Pulse Oximetry 97 09/06/24 15:37 Oxygen Delivery Room Air 09/06/24 15:37 Temperature 97.9 F 09/06/24 17:45 Pulse Rate 71 09/06/24 17:45 Respiratory Rate 19 09/06/24 17:45 Blood Pressure 154/88 H 09/06/24 17:45 Pulse Oximetry 96 09/06/24 17:45 Oxygen Delivery Room Air 09/06/24 15:37 Medical Decision Making Vital Signs Vital Signs: Vital Signs Temperature 97.9 F 09/06/24 15:37 Pulse Rate 89 09/06/24 15:37 Respiratory Rate 18 09/06/24 15:37 Blood Pressure 100/62 09/06/24 15:37 Pulse Oximetry 97 09/06/24 15:37 Oxygen Delivery Room Air 09/06/24 15:37 Temperature 97.9 F 09/06/24 17:45 Pulse Rate 71 09/06/24 17:45 Respiratory Rate 19 09/06/24 17:45 Blood Pressure 154/88 H 09/06/24 17:45 Pulse Oximetry 96 09/06/24 17:45 Oxygen Delivery Room Air 09/06/24 15:37 Lab Data 09/06/24 16:46 09/06/24 16:50 Labs: Lab Results 09/06/24 09/06/24 Range/Units 16:46 16:50 WBC 11.3 H (4.5-10.0) K/mm3 RBC 4.81 (4.6-6.20) M/mm3 Hgb 12.8 L (14.0-18.0) g/dL Hct 40.6 L (42.0-52.0) % MCV 84.4 (80-100) fl MCH 26.6 (26-34) pg MCHC 31.5 L (32-36) g/dl RDW 14.6 H (11.5-14.5) % Plt Count 198 (150-375) k/mm3 MPV 9.8 (7.4-10.4) fl Immature Gran % (Auto) 0.7 H (0-0.5) % Neut % (Auto) 82.4 H (45.5-73.1) % Lymph % (Auto) 8.7 L (18.3-44.2) % Harding % (Auto) 7.7 (2.6-8.5) % Eos % (Auto) 0.1 (0-4.4) % Baso % (Auto) 0.4 (0.2-1.2) % Lymph # (Auto) 0.98 (0.9-3.2) K/mm3 Harding # (Auto) 0.9 H (0.1-0.6) K/mm3 Eos # (Auto) 0.0 (0-0.3) K/mm3 Baso # (Auto) 0.0 (0.0-0.1) K/mm3 Abs Immat Gran (auto) 0.08 H (0.00-0.031) K/mm3 Absolute Neuts (auto) 9.3 H (1.3-6.7) K/mm3 Absolute Nucleated RBC 0.000 (0.0-0.012) K/mm3 Nucleated RBC % 0.0 (0.0-0.2) % Sodium Cancelled 138 Potassium Cancelled 3.7 Chloride Cancelled 104 Carbon Dioxide Cancelled 21 L Anion Gap Cancelled 13 H BUN Cancelled 27 H Creatinine Cancelled 1.43 H Estim Creat Clear Calc Cancelled 34 Estimated GFR Cancelled 47 L Glucose Cancelled 151 H Calcium Cancelled 8.9 Total Bilirubin Cancelled 1.2 AST Cancelled 35 ALT Cancelled 29 Alkaline Phosphatase Cancelled 171 H Troponin I 0.012 (0.000-0.034) ng/mL Total Protein Cancelled 8.0 Albumin Cancelled 4.4 Imaging Data Radiologist's impression: ITS Impressions Wrist X-Ray 09/06/24 16:02 IMPRESSION: Acute versus chronic scapholunate widening. No definite fracture. Chest X-Ray 09/06/24 16:56 IMPRESSION: Subsegmental bibasilar atelectasis/consolidation. Chronic left hemidiaphragm elevation Head CT 09/06/24 17:28 IMPRESSION: Focal left occipital lobe hypodensity may represent a small infarct of indeterminate age. No intracranial hemorrhage or acute traumatic intracranial finding. Head/Cervical Spine/Facial Bones CT 09/06/24 17:36 IMPRESSION: No acute fracture or traumatic malalignment in the cervical spine. No acute facial bone fracture. Discharge Plan Discharge Clinical Impression: Scapho-lunate dissociation, Contusion of face Patient Disposition: Home, Self-Care Condition: Stable Instructions: Wrist Fracture in Adults (ED), Contusion in Adults (ED) Additional Instructions: Follow-up with your primary care doctor for further treatment and evaluation. You may also need to see a orthopedic surgeon for your wrist. Patient Language: Solomon Islander Follow-up/Referrals: Kd Hatfield MD [Physician] - 1 Week UNKNOWN,DOCTOR [Primary Care Provider] -
== END 2024-09-06 20:40 | disposition home or self-care (01) ==
PROVIDERS: Emergency Medicine; Emergency Provider Emergency Medicine
DX: S00.83XA Contusion of other part of head, initial encounter (principal); S63.511A Sprain of carpal joint of right wrist, initial encounter; I25.2 Old myocardial infarction; I10 Essential (primary) hypertension; W19.XXXA Unspecified fall, initial encounter
CPT/HCPCS: 36415; 70450; 70486; 71045; 72125; 73110; 80053; 84484; 85025; 93005; 99284